=== PATIENT | female | born 1980 | race Caucasian/White ===

== ENCOUNTER 2017-11-15 19:20 | Emergency (ER) | payer SELFPAY ==
[~2017-11-15] VITALS: Ht 157.5 cm; Wt 54.4 kg
[~2017-11-15 19:20] MED LIST: ACHD5005 PO; ALPR.5T PO; AMLO2.5T PO; BSP10T; BSP10T PO; CHLO500T2 PO; CIPR-17 PO; CPR500T PO; CYCL10TA9 PO; HYDR1TAB8 OP; IBP800T PO; METF-380 PO; MTF500T; NAPR-243 PO; NITR-65 PO; NITR100C3 PO; ONDAN4ODT SL; OXYC-309 PO; PHEN100T26 PO; PHEN200T27 PO; PHEN37.555 PO; SPIR25TA3 PO; SPIR50TA27; SULF1TAB38 PO; TRAM50TA2 PO; TRM50T PO; [UNRECOGNIZED DRUG - CODE] PO; bentyl PO
--- OUTSIDE RECORDS SUMMARY | 2017-11-15 19:25 | XMS REPORT ---
Author Author GREGORIO GARCIA Organization [employer] Address Unknown Phone Unavailable Care Team Providers Care President Celebrity Acquistion Name Role Phone GREGORIO GARCIA CP Unavailable Allergies No Known Allergies Problems Problem Type Condition Code Onset Dates Condition Status Problem Panic disorder without agoraphobia F41.0 Active Problem Goiter, unspecified E04.9 Active Problem Enlargement of lymph node R59.1 Active Problem PTSD (post-traumatic stress disorder) F43.10 Active Problem Polycystic ovaries E28.2 Active Problem Otalgia, unspecified ear H92.09 Active Problem Nonspecific abdominal pain R10.9 Active Problem Counseling on substance use and abuse Z71.89 Active Problem Spontaneous ecchymoses R23.3 Active Problem Low back pain M54.5 Active Problem Hematuria, unspecified R31.9 Active Medications No Known Medications Results No Known Results Summary Purpose [employer] Submission
--- OUTSIDE RECORDS SUMMARY | 2017-11-15 19:25 | XMS REPORT ---
Author Author LOTTIE ARSHAD [employer] Address Unknown Phone Unavailable Care Team Providers Care Keysmith Name Role Phone LOTTIE ARSHAD Unavailable Allergies, Adverse Reactions, Alerts Substance Reaction Event Type Penicillin V Potassium hives Drug Allergy Problems Problem Type Condition Code Onset Dates Condition Status Problem Panic disorder without agoraphobia F41.0 Active Problem Goiter, unspecified E04.9 Active Problem Enlargement of lymph node R59.1 Active Problem Polycystic ovaries E28.2 Active Problem Otalgia, unspecified ear H92.09 Active Problem Nonspecific abdominal pain R10.9 Active Problem Counseling on substance use and abuse Z71.89 Active Problem Spontaneous ecchymoses R23.3 Active Problem Low back pain M54.5 Active Problem Hematuria, unspecified R31.9 Active Assessment Left lower quadrant abdominal tenderness R10.814 Active Assessment History of abnormal cervical Pap smear Z87.898 Active Assessment Papanicolaou smear Z12.4 Active Assessment Routine screening for STI (sexually transmitted infection) Z11.3 Active Assessment Unprotected sexual intercourse Z72.51 Active Assessment Vaginal odor N94.89 Active Assessment Vaginal discharge N89.8 Active Problem PTSD (post-traumatic stress disorder) F43.10 Active Medications Medication Code System Code Instructions Start Date End Date Status Dosage metformin [facility] [address]-06 1,000 mg 1 TAB orally once a day Jul 26, 2014 0.5 tablet by Oral route 1 time per day Spironolactone [facility] [address]-85 50 mg Jul 26, 2014 1 tablet by Oral route 1 time per day Flagyl [facility] [address]-40 500 MG Orally 2 times a day Jun 18, 2015 Jun 25, 2015 1 tablet Xanax [facility] [address]-19 1 MG September 12, 2014 1 tablet by Oral route 3 times per day am, 2pm and bedtime Procedures Procedure Coding System Code Date No Charge CPT-4 96940 Jun 18, 2015 TRICHOMONAS ASSAY W/OPTIC CPT-4 79233 Jun 18, 2015 SPECIMEN HANDLING CPT-4 09243 Jun 18, 2015 ACUTE HEPATITIS PANEL CPT-4 19299 Jun 18, 2015 CULTURE, BACTERIA, OTHER CPT-4 54039 Jun 18, 2015 Office Visit, Est Pt., Level 3 CPT-4 85002 Jun 18, 2015 VENIPUNCT, ROUTINE* CPT-4 92833 Jun 18, 2015 Vital Signs Date/Time: Jun 18, 2015 Temperature 98.0 F Weight 124.5 lbs Height 62 in BMI 22.77 Index Blood Pressure Diastolic 76 mmHg Blood Pressure Systolic 116 mmHg Results Name Result Date Reference Range Unit Abnormality Flag HEPATITIS PROFILE ----Hep B Core Ab, IgM Negative [id number] Negative ----Hep C Virus Ab <0.1 [id number] 0.0-0.9 s/co ratio ----Hep A Ab, IgM Negative [id number] Negative ----HBsAg Screen Negative [id number] Negative PDF Report ----PDF Report1 [facility] [id number] ROUTINE VENIPUNCTURE TRICHOMONAS (IN HOUSE) ----Exp date [id number] ----Control + [id number] ----Lot # [id number] ----TRICHOMONAS Negative [id number] Summary Purpose [employer]ClinicalWorks Submission
--- OUTSIDE RECORDS SUMMARY | 2017-11-15 19:25 | XMS REPORT ---
Author Author GREGORIO GARCIA Organization [employer] Address Unknown Phone Unavailable Care Team Providers Care Television Operator Name Role Phone GREGORIO GARCIA CP Unavailable Allergies No Known Allergies Problems Problem Type Condition ICD-9 Code Onset Dates Condition Status Problem Posttraumatic stress disorder 309.81 Active Problem Panic disorder without agoraphobia 300.01 Active Problem Enlargement of lymph nodes 785.6 Active Problem Candidiasis of vulva and vagina 112.1 Active Problem Pain in joint, pelvic region and thigh 719.45 Active Problem Streptococcal sore throat 034.0 Active Problem Goiter, unspecified 240.9 Active Problem Hematuria, unspecified 599.70 Active Problem Spontaneous ecchymoses 782.7 Active Problem Abdominal pain, other specified site 789.09 Active Problem Unspecified otalgia 388.70 Active Problem Lumbago 724.2 Active Problem Polycystic ovaries 256.4 Active Problem Screening examination for venereal disease V74.5 Active Problem Contact dermatitis and other eczema, due to unspecified cause 692.9 Active Problem Abdominal pain, generalized 789.07 Active Problem Abdominal pain, unspecified site 789.00 Active Problem Dysuria 788.1 Active Problem Migraine, unspecified without mention of intractable migraine without mention of status migrainosus 346.90 Active Problem Urinary tract infection, site not specified 599.0 Active Problem Abdominal or pelvic swelling, mass or lump, unspecified site 789.30 Active Problem Special screening for malignant neoplasms, vagina V76.47 Active Problem Leukorrhea, not specified as infective 623.5 Active Problem Abdominal pain, right lower quadrant 789.03 Active Problem Counseling on substance use and abuse V65.42 Active Problem Acute upper respiratory infections of unspecified site 465.9 Active Problem Pain in joint, lower leg 719.46 Active Problem Cough 786.2 Active Problem Pain in joint, shoulder region 719.41 Active Problem Other specified disease of hair and hair follicles 704.8 Active Medications Medication Code System Code Instructions Start Date End Date Status Dosage Xanax [facility] [address]-96 1 MG September 12, 2014 1 tablet by Oral route 3 times per day am, 2pm and bedtime Results No Known Results Summary Purpose [employer]ClinicalWorks Submission
--- OUTSIDE RECORDS SUMMARY | 2017-11-15 19:26 | XMS REPORT ---
Author Author AMRIT DE LA TORRE Organization [facility] Address [address] [place] [address] Care Team Providers Care Recruiting Internship Name Role Phone AMRIT DE LA TORRE Unavailable PROBLEMS Type Condition ICD9-CM Code NVM36-KK Code Onset Dates Condition Status SNOMED Code Problem Polycystic ovaries E28.2 Active 89653551 Problem PTSD (post-traumatic stress disorder) F43.10 Active 22031420 Problem Panic disorder without agoraphobia F41.0 Active 58229199 Problem Goiter, unspecified E04.9 Active 3943848 Problem Enlargement of lymph node R59.1 Active 06428001 Problem Nonspecific abdominal pain R10.9 Active 196929399 Problem Counseling on substance use and abuse Z71.89 Active 644705632 Problem Anxiety F41.9 Active 99869447 Problem Hirsutism L68.0 Active 415143610 Problem Hematuria, unspecified R31.9 Active 64389726 Problem Otalgia, unspecified ear H92.09 Active 91301083 Problem Low back pain M54.5 Active 208749543 Problem Spontaneous ecchymoses R23.3 Active 188022762 ALLERGIES No Information ENCOUNTERS Encounter Location Date Diagnosis [facility] [id number] [address] October, [facility] [address] [address] Apr, [facility] [id number] [address] Apr, [facility] [id number] [place] [address] Mar, Screen for STD (sexually transmitted disease) Z11.3 [facility] [id number] [place] [address] Mar, [facility] [id number] [address] Jan, Lumbar strain, initial encounter S39.012A [facility] [id number] [address] Nov, Acute cystitis with hematuria N30.01 and Dysuria R30.0 [place] [address] [address] October, [place] [address] [address] October, Anxiety F41.9 and Hirsutism L68.0 [place] [address] [address] Jun, [facility] [address] [address] May, Vaginal odor N94.89 ; Routine screening for STI (sexually transmitted infection) Z11.3 ; Papanicolaou smear Z12.4 ; Vaginal discharge N89.8 ; Unprotected sexual intercourse Z72.51 ; History of abnormal cervical Pap smear Z87.898 and Left lower quadrant abdominal tenderness R10.814 [facility] [id number] [address] Feb, [facility] [address] [address] Jan, Breast lump on right side at 11 o'clock position 611.72 ; Family hx-breast malignancy V16.3 ; Enlarged thyroid 240.9 ; Abnormal facial hair 704.1 and Nicotine dependence 305.1 [place] [address] [address] Jan, Finger pain, left 729.5 [place] [address] [address] Jan, [place] [address] [facility] [id number] [place] [address] Nov, Hematuria, unspecified 599.70 and Back pain 724.5 [facility] [address] [facility] [id number] [place] [address] October, [facility] [address] [address] October, Hematuria, unspecified 599.70 [facility] [address] [facility] [id number] [place] [address] Sep, [facility] [address] [facility] [id number] [place] [address], [place] [address] Sep, [facility] [address] [place] [address] Aug, [facility] [id number] [place] [address], [place] [address] Aug, [facility] [id number] [place] [address] Jul, [facility] [address] [place] [address] Jul, [facility] [address] [address] Apr, [facility] [address] [address] Apr, [facility] [address] [address] Apr, [facility] [id number] [place] [address] Apr, [facility] [address] [address] Apr, [facility] [id number] [address] Apr, [facility] [place] [facility] [address] [id number] [place] [address] Mar, [facility] [place] [facility] [address] [id number] [place] [address]- 09[address] Mar, [facility] [place] [facility] [address] [id number] [place] [address] Mar, [facility] [place] [facility] [address] [id number] [place] [address]- [address] Mar, [facility] [place] [facility] [address] [id number] [place] [address]- [address] 30 Feb, 2013 [facility] [place] [facility] [address] [id number] [place] [address]- 49[address] 30 Feb, 2013 [facility] [place] [facility] [address] [id number] [place] [address]- 4[address] Feb, 2013 [facility] [place] [facility] [address] [id number] [place] [address]- 0531 23 Feb, 2013 [facility] [place] [facility] [address] [id number] [place] [address]- 89[address] Feb, 2013 [facility] [place] [facility] [address] [id number] [place] [address]- 6978 Feb, 2013 [facility] [place] [facility] [address] [id number] [place] [address]- 3769 15 Feb, 2013 [facility] [place] [facility] [address] [id number] [place] [address]- 2542 15 Feb, 2013 [facility] [place] [facility] [address] [id number] [place] [address]- [address] Feb, 2013 [facility] [place] [facility] [address] [id number] [place] [address]- 25[address] Feb, 2013 [facility] [place] [facility] [address] [id number] [place] [address]- 30[address] 04 Feb, 2013 [facility] [place] [facility] [address] [id number] [place] [address]- 72[address] Feb, [facility] [place] [facility] [address] [id number] [place] [address]- 56[address] Feb, [facility] [place] [facility] [address] [id number] [place] [address]- 9270 Feb, [facility] [place] [facility] [address] [id number] [place] [address]- 0098 Jan, [facility] [place] [facility] [address] [id number] [place] [address]- 9641 Jan, [facility] [place] [facility] [address] [id number] [place] [address]- [address] Jan, [facility] [place] [facility] [address] [id number] [place] [address]- 9597 Jan, [facility] [place] [facility] [address] [id number] [place] [address]- 3399 Jan, [facility] [place] [facility] [address] [id number] [place] [address]- 8603 October, [facility] [place] [facility] [address] [id number] [place] [address]- 8478 October, [facility] [place] [facility] [address] [id number] [place] [address]- 7927 Sep, [facility] [place] [facility] [address] [id number] [place] [address]- 1845 Sep, [facility] [place] [facility] [address] [id number] [place] [address]- 4072 Sep, [facility] [place] [facility] [address] [id number] [place] [address]- 7098 Sep, [facility] [place] [facility] [address] [id number] [place] [address]- 2640 Sep, [facility] [place] [facility] [address] [id number] [place] [address]- 3421 Sep, [facility] [place] [facility] [address] [id number] [place] [address]- 8228 Aug, [facility] [place] [facility] [address] [id number] [place] [address]- 9099 Aug, [facility] [place] [facility] [address] [id number] [place] [address]- 24[address] Jul, [facility] [place] [facility] [address] [id number] [place] [address]- 2886 Jul, [facility] [place] [facility] [address] [id number] [place] [address]- 7759 Jul, [facility] [place] [facility] [address] [id number] [place] [address]- 3246 Jul, [facility] [place] [facility] [address] [id number] [place] [address]- 5995 Jul, [facility] [place] [facility] [address] [id number] [place] [address]- 2256 Jul, [facility] [place] [facility] [address] [id number] [place] [address]- 2776 May, [facility] [place] [facility] [address] [id number] [place] [address]- 0914 May, [facility] [place] [facility] [address] [id number] [place] [address]- 9357 May, [facility] [place] [facility] [address] [id number] [place] [address]- 2540 May, [facility] [place] [facility] [address] [id number] [place] [address]- 254 May, [facility] [place] [facility] [address] [id number] [place] [address]- 2546 May, [facility] [place] [facility] [address] [id number] [place] [address]- 2540 Apr, [facility] [place] [facility] [address] [id number] [place] [address]- 0173 Apr, [facility] [place] [facility] [address] [id number] [place] [address]- 7865 Apr, [facility] [place] [facility] [address] [id number] [place] [address]- 1731 Apr, [facility] [place] [facility] [address] [id number] [place] [address]- 8808 Mar, [facility] [place] [facility] [address] [id number] [place] [address]- 3018 Mar, [facility] [place] [facility] [address] [id number] [place] [address]- 5894 Mar, [facility] [place] [facility] [address] [id number] [address]- 4[address] Mar, [facility] [place] [facility] [address] [id number] [place] [address]- 4441 Mar, [facility] [place] [facility] [address] [id number] [place] [address]- 69[address] Mar, [facility] [place] [facility] [address] [id number] [place] [address]- 9169 Mar, [facility] [place] [facility] [address] [id number] [address]- 8660 Mar, [facility] [place] [facility] [address] [id number] [place] [address]- 8551 Mar, [facility] [place] [facility] [address] [id number] [place] [address]- 6927 Mar, [facility] [place] [facility] [address] [id number] [place] [address]- 7519 Feb, [facility] [place] [facility] [address] [id number] [address]- 7[address] Jan, [facility] [place] [facility] [address] [id number] [place] [address]- 4992 Dec, [facility] [place] [facility] [address] [id number] [place] [address]- 7559 Dec, [facility] [address] [id number] [place] [address]- 8714 Dec, [facility] [address] [id number] [place] [address]- 9856 Dec, [facility] [address] [id number] [place] [address]- 5094 Dec, [facility] [address] [id number] [place] [address]- 5501 Dec, [facility] [address] [id number] [place] [address]- 5492 Dec, [facility] [address] [id number] [place] [address]- 8631 Dec, [facility] [address] [id number] [place] [address]- 9748 Dec, [facility] [address] [id number] [place] [address]- 5548 Nov, [facility] [address] [id number] [place] [address]- 2378 Nov, [facility] [address] [id number] [place] [address]- 0583 Nov, [facility] [place] [facility] [address] [id number] [place] [address]- 4297 October, [facility] [address] [id number] [place] [address]- 2712 Jul, [facility] [place] [facility] [address] [id number] [place] [address]- 0104 Jul, [facility] [place] [facility] [address] [id number] [place] [address]- 2546 Jul, [facility] [address] [id number] [place] [address]- 6948 Jun, [facility] [place] [facility] [address] [id number] [place] [address]- 5411 Jun, [facility] [place] [facility] [address] [id number] [place] [address]- 1506 Jun, [facility] [place] [facility] [address] [id number] [place] [address]- 7687 Jun, [facility] [place] [facility] [address] [id number] [place] [address]- 4459 Jun, [facility] [place] [facility] [address] [id number] [place] [address]- 9397 Jun, [facility] [place] [facility] [address] [id number] [place] [address]- 6889 Jun, [facility] [place] [facility] [address] [id number] [place] [address]- 2763 Jun, [facility] [place] [facility] [address] [id number] [place] [address]- 8448 Apr, [facility] [place] [facility] [address] [id number] [place] [address]- 4005 Apr, [facility] [place] [facility] [address] [id number] [place] [address]- 2506 Mar, [facility] [place] [facility] [address] [id number] [place] [address]- 8138 Mar, [facility] [place] [facility] [address] [id number] [place] [address]- 7921 Mar, [facility] [place] [facility] [address] [id number] [place] [address]- 3174 Feb, [facility] [place] [facility] [address] [id number] [place] [address]- 1531 05 Feb, 2012 [facility] [place] [facility] [address] [id number] [place] [address]- 8820 Feb, [facility] [place] [facility] [address] [id number] [place] [address]- 5782 Jan, [facility] [place] [facility] [address] [id number] [place] [address]- 5273 Jan, [facility] [place] [facility] [address] [id number] [place] [address]- 5286 Jan, [facility] [place] [facility] [address] [id number] [place] [address]- 8310 Nov, [facility] [place] [facility] [address] [id number] [place] [address]- 0448 Nov, [facility] [place] [facility] [address] [id number] [place] [address]- 5442 Nov, [facility] [place] [facility] [address] [id number] [place] [address]- 1692 Nov, [facility] [place] [facility] [address] [id number] [place] [address]- 8490 October, [facility] [place] [facility] [address] [id number] [place] [address]- 4677 October, [facility] [place] [facility] [address] [id number] [place] [address]- 7327 Sep, [facility] [place] [facility] [address] [id number] [place] [address]- 0927 Sep, [facility] [place] [facility] [address] [id number] [place] [address]- 7504 Jul, [facility] [place] [facility] [address] [id number] [place] [address]- 1707 Jul, [facility] [place] [facility] [address] [id number] [place] [address]- 3929 Jun, [facility] [place] [facility] [address] [id number] [place] [address]- 6872 Jun, [facility] [place] [facility] [address] [id number] [place] [address]- 6441 May, [facility] [address] [facility] [id number] [place] [address]- 0667 May, [facility] [address] [address]- 3370 May, [facility] [address] [facility] [id number] [place] [address] Apr, [facility] [id number] [address] 13 Feb, 2011 [facility] [address] [facility] [id number] [address] Sep, [facility] [id number] [address] Apr, [facility] [id number] [address] Apr, [facility] [id number] [address] Nov, [facility] [id number] [address] October, [facility] [id number] [address] 19 Jul, 2008 [facility] [id number] [address] 10 May, 2008 [facility] [id number] [address] 10 Mar, 2008 IMMUNIZATIONS No Known Immunizations SOCIAL HISTORY Never Assessed REASON FOR VISIT STD treatment PLAN OF CARE VITAL SIGNS MEDICATIONS Unknown Medications RESULTS No Results PROCEDURES No Known procedures INSTRUCTIONS MEDICATIONS ADMINISTERED No Known Medications MEDICAL (GENERAL) HISTORY Type Description Date Medical History anxiety Surgical History tubaligation 2003 Surgical History bladder lifted X 2 Surgical History rectal repair 2004 Surgical History hysterectomy Hospitalization History Hospitalized only for surgeries and childbirth
--- OUTSIDE RECORDS SUMMARY | 2017-11-15 19:26 | XMS REPORT ---
Author Author JR IVY [facility], [place] eClinicalWorks Address Unknown Phone Unavailable Care Team Providers Care Database Administration Associate Name Role Phone JR IVY CP Unavailable Allergies, Adverse Reactions, Alerts Substance Reaction Event Type Penicillin V Potassium hives Drug Allergy Problems Problem Type Condition ICD-9 Code Onset Dates Condition Status Assessment Enlarged thyroid 240.9 Active Assessment Abnormal facial hair 704.1 Active Assessment Breast lump on right side at 11 o'clock position 611.72 Active Assessment Family hx-breast malignancy V16.3 Active Problem Posttraumatic stress disorder 309.81 Active Problem [...] Leukorrhea, not specified as infective 623.5 Active Assessment Nicotine dependence 305.1 Active Problem Abdominal pain, right lower quadrant [...] Start Date End Date Status Dosage metformin [facility] [address]-59 1,000 mg 1 TAB orally once a day Jul 26, 2014 0.5 tablet by Oral route 1 time per day Xanax [facility] [address]-02 1 mg September 12, 2014 1 tablet by Oral route 3 times per day am, 2pm and bedtime Spironolactone [facility] [address]-08 50 mg Jul 26, 2014 1 tablet by Oral route 1 time per day Procedures Procedure Coding System Code Date Preventive Care Est Pt. Age 18-39 CPT-4 11277 Feb 18, 2015 Vital Signs Date/Time: Feb 18, 2015 Temperature 97.0 F Weight 124.7 lbs Height 62 in BMI 22.81 Index Blood Pressure Diastolic 68 mmHg Blood Pressure Systolic 110 mmHg Cardiac Monitoring Heart Rate 78 bpm Results No Known Results Summary Purpose eClinicalWorks Submission
[2017-11-15] MEDS ORDERED: NS IV 1000 ML 1,000 ML IV SCH ×2 (19:33→20:57)
[2017-11-15] MEDS ORDERED: ONDANSETRON 4 MG/2 ML (SDV) Z0FRAN ONE (19:33)
[2017-11-15] MEDS ORDERED: KETOROLAC 30 MG/ML VIAL IVP STA (19:38)
[2017-11-15 19:41] LABS: BASOPHILS % (AUTO) 0 % (0-10); EOSINOPHILS # (AUTO) 0.1 10^3/uL (0.0-0.3); EOSINOPHILS % (AUTO) 1 % (0-10); HEMATOCRIT 43 % (35-52); HEMOGLOBIN 14.5 G/DL (11.5-16.0); LYMPHOCYTES % (AUTO) 27 % (12-44); MEAN CORPUSCULAR HEMOGLOBIN 31 PG (25-34); MEAN CORPUSCULAR HGB CONC 34 G/DL (32-36); MEAN CORPUSCULAR VOLUME 91 FL (80-99); MEAN PLATELET VOLUME 11.3 FL (7.4-10.4); MONOCYTES # (AUTO) 0.6 X 10^3 (0.0-1.0); MONOCYTES % (AUTO) 7 % (0-12); NEUTROPHILS # (AUTO) 4.9 X 10^3 (1.8-7.8); NEUTROPHILS % (AUTO) 65 % (42-75); PLATELET COUNT 238 10^3/uL (130-400); RED BLOOD COUNT 4.68 10^6/uL (4.35-5.85); RED CELL DISTRIBUTION WIDTH 13.6 % (10.0-14.5); WHITE BLOOD COUNT 7.5 10^3/uL (4.3-11.0)
[2017-11-15] MEDS ORDERED: ONDANSETRON 4 MG/2 ML (SDV) Z0FRAN IVP ONE (19:45)
[2017-11-15 20:01] LABS: PROTHROMBIN TIME PATIENT 13.1 SEC (12.2-14.7)
[2017-11-15 20:07] LABS: ALANINE AMINOTRANSFERASE 18 U/L (0-55); ALBUMIN 4.4 GM/DL (3.2-4.5); ALKALINE PHOSPHATASE 65 U/L (40-136); BILIRUBIN,TOTAL 0.7 MG/DL (0.1-1.0); BUN/CREATININE RATIO 22; CALCIUM 10.4 MG/DL (8.5-10.1); CARBON DIOXIDE 22 MMOL/L (21-32); CHLORIDE 105 MMOL/L (98-107); CREATININE SERUM 0.92 MG/DL (0.60-1.30); GFR ESTIMATED > 60; GLUCOSE 89 MG/DL (70-105); MAGNESIUM 2.2 MG/DL (1.8-2.4); POTASSIUM 4.1 MMOL/L (3.6-5.0); SODIUM 141 MMOL/L (135-145); TOTAL PROTEIN 6.9 GM/DL (6.4-8.2)
[2017-11-15 20:08] LABS: ACETAMINOPHEN < 10 UG/ML (10-30)
--- NOTE | 2017-11-15 20:08 | Diagnostic Imaging Report ---
PROCEDURE: CT head without contrast. TECHNIQUE: Multiple contiguous axial images were obtained through the brain without the use of intravenous contrast. INDICATION: Severe head pain The ventricles are normal in size, shape and position. There is no acute parenchymal hemorrhage, edema or mass. There is no extra-axial mass or hemorrhage. IMPRESSION: Normal CT of the head. There is no significant change from 05/24/2013. Dictated by: Dictated on workstation # [id number]
--- NOTE | 2017-11-15 20:13 | ED Headache ---
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 DENIES TAKING ANY MEDICATIONS FOR C/ O. DAUGHTER REPORTS PT TAKES MEDS FOR SEIZURES WHICH PT DENIES Nursing Sepsis Screen: No Definite Risk History of Present Illness Date Seen by Provider: November 15, 2017 Time Seen by Provider: 19:25 Initial Comments 36-year-old female presents for headache, nausea and confusion. The patient is diabetic but is no longer taking medication, maintained by diet and exercise. She has a history of seizure disorders but denies taking medications for it. Her daughter brought her to the emergency department and reports that she called earlier today and was confused and lethargic. When she got to her home she was lying on the floor and had difficulty standing. She reports that she vomited 3-4 times earlier today and has not. She is complaining of a frontal headache with pain 9/10. Her daughter reports a history of illicit drug use in her past, the patient denies using any drugs recently. She does report having one alcoholic beverage last evening no alcohol today. Denies taking any medications today. Timing/Duration: 4-6 hours Severity/Quality: moderate Location: frontal Prior Headaches/Recent Trauma: frequent headaches Associated Symptoms: confusion, fatigue; No facial pain, No fever/chills, No loss of consciousness; nausea/vomiting; No nasal congestion, No nasal drainage, No numbness in legs/feet, No rash, No seizures, No sinus infection, No stiff neck, No vision changes; weakness Allergies and Home Medications Allergies Coded Allergies: Penicillins (Unverified Allergy, Mild, HIVES, 05/20/07) propoxyphene (Unverified Allergy, Mild, 11/25/08) Home Medications Alprazolam 0.5 Mg Tablet, 2 TAB PO TID PRN, (Reported) Chlorzoxazone 500 Mg Tablet, 500 MG PO BID, (Reported) Ciprofloxacin 500 Mg Tbmp.24hr, 1 TAB PO BID Prescribed by: NICOLE KARIMI on 05/12/14 4479 Oxycodone Hcl/Acetaminophen 1 Each Tablet, 1 EACH PO Q6H PRN for PAIN, (Reported ) Sulfamethoxazole/Trimethoprim 1 Each Tablet, 1 EACH PO BID Prescribed by: KIP PEACOCK on 11/15/17 2249 Patient Home Medication List Home Medication List Reviewed: Yes Review of Systems Constitutional: no symptoms reported, see HPI Gastrointestinal: see HPI, nausea, vomiting Psychiatric/Neurological: See HPI, Headache All Other Systems Reviewed Negative Unless Noted: Yes Past Rerivim-Ikdaye-Kplmda Hx Past Med/Social Hx: Reviewed Nursing Past Med/Soc Hx Patient Social History Alcohol Use: Denies Use Recreational Drug Use: No Smoking Status: Current Everyday Smoker Type Used: Cigarettes Recent Foreign Travel: No Contact w/Someone Who Travel: No Recent Infectious Disease Expo: No Physical Abuse: No Sexual Abuse: No Mistreated: No Fear: No Immunizations Up To Date Tetanus Booster (TDap): Less than 5yrs PED Vaccines UTD: Yes Seasonal Allergies Seasonal Allergies: No Past Medical History Respiratory: No Cardiac: No 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, 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 Sexually Transmitted Disease: No HIV/AIDS: No Gastrointestinal: No Rheumatoid Arthritis, Fractures Endocrine: No Diabetes, Non-Insulin dep Cancer: No Psychosocial: Yes Anxiety, Depression Nursing Suicide Risk Score: 0 Integumentary: No Blood Disorders: No Adverse Reaction/Blood Tranf: No Family Medical History No Pertinent Family Hx Physical Exam Vital Signs Vital Signs - First Documented 11/15/17 19:23 Temp 92.8 Pulse 88 Resp 20 B/P (MAP) 110/71 (84) Pulse Ox 100 O2 Delivery Room Air Capillary Refill : Less Than 3 Seconds General Appearance: WD/WN, mild distress HEENT: PERRL/EOMI, normal ENT inspection, TMs normal, pharynx normal Neck: non-tender, full range of motion, supple, normal inspection Cardiovascular: normal peripheral pulses, regular rate, rhythm Respiratory: chest non-tender, lungs clear, normal breath sounds Gastrointestinal: normal bowel sounds, non tender, soft; No guarding, No rebound, No tenderness Psychiatric: lethargic Crainal Nerves: normal hearing, normal speech, PERRL Motor/Sensory: no motor deficit, no sensory deficit Skin: normal color, warm/dry Progress/Results/Core Measures Results/Orders Lab Results Laboratory Tests Test 11/15/17 19:30 11/15/17 19:42 11/15/17 20:36 Range/Units White Blood Count 7.5 4.3-11.0 10^3/uL Red Blood Count 4.68 4.35-5.85 10^6/uL Hemoglobin 14.5 11.5-16.0 G/DL Hematocrit 43 35-52 % Mean Corpuscular Volume 91 80-99 FL Mean Corpuscular Hemoglobin 31 25-34 PG Mean Corpuscular Hemoglobin Concent 34 32-36 G/DL Red Cell Distribution Width 13.6 10.0-14.5 % Platelet Count 238 130-400 10^3/uL Mean Platelet Volume 11.3 H 7.4-10.4 FL Neutrophils (%) (Auto) 65 42-75 % Lymphocytes (%) (Auto) 27 12-44 % Monocytes (%) (Auto) 7 0-12 % Eosinophils (%) (Auto) 1 0-10 % Basophils (%) (Auto) 0 0-10 % Neutrophils # (Auto) 4.9 1.8-7.8 X 10^3 Lymphocytes # (Auto) 2.0 1.0-4.0 X 10^3 Monocytes # (Auto) 0.6 0.0-1.0 X 10^3 Eosinophils # (Auto) 0.1 0.0-0.3 10^3/uL Basophils # (Auto) 0.0 0.0-0.1 10^3/uL Prothrombin Time 13.1 12.2-14.7 SEC INR Comment 1.0 0.8-1.4 Activated Partial Thromboplast Time 26 24-35 SEC Sodium Level 141 135-145 MMOL/L Potassium Level 4.1 3.6-5.0 MMOL/L Chloride Level 105 98-107 MMOL/L Carbon Dioxide Level 22 21-32 MMOL/L Anion Gap 14 5-14 MMOL/L Blood Urea Nitrogen 20 H 7-18 MG/DL Creatinine 0.92 0.60-1.30 MG/DL Estimat Glomerular Filtration Rate > 60 BUN/Creatinine Ratio 22 Glucose Level 89 70-105 MG/DL Calcium Level 10.4 H 8.5-10.1 MG/DL Magnesium Level 2.2 1.8-2.4 MG/DL Total Bilirubin 0.7 0.1-1.0 MG/DL Aspartate Amino Transf (AST/SGOT) 22 5-34 U/L Alanine Aminotransferase (ALT/SGPT) 18 0-55 U/L Alkaline Phosphatase 65 40-136 U/L Troponin I < 0.30 <0.30 NG/ML Total Protein 6.9 6.4-8.2 GM/DL Albumin 4.4 3.2-4.5 GM/DL Acetaminophen Level < 10 L 10-30 UG/ML Serum Alcohol < 10 <10 MG/DL Glucometer 96 70-110 MG/DL Urine Color YELLOW Urine Clarity VERY CLOUDY H Urine pH 6 5-9 Urine Specific [place] 1.025 H 1.016-1.022 Urine Protein 1+ H NEGATIVE Urine Glucose (UA) NEGATIVE NEGATIVE Urine Ketones 2+ H NEGATIVE Urine Nitrite POSITIVE H NEGATIVE Urine Bilirubin NEGATIVE NEGATIVE Urine Urobilinogen NORMAL NORMAL MG/DL Urine Leukocyte Esterase 2+ H NEGATIVE Urine RBC (Auto) 2+ H NEGATIVE Urine RBC 0-2 /HPF Urine WBC 25-50 H /HPF Urine Squamous Epithelial Cells 25-50 H /HPF Urine Crystals NONE /LPF Urine Bacteria LARGE H /HPF Urine Casts NONE /LPF Urine Mucus SMALL H /LPF Urine Culture Indicated YES Urine Opiates Screen NEGATIVE NEGATIVE Urine Oxycodone Screen NEGATIVE NEGATIVE Urine Methadone Screen NEGATIVE NEGATIVE Urine Propoxyphene Screen NEGATIVE NEGATIVE Urine Barbiturates Screen NEGATIVE NEGATIVE Ur Tricyclic Antidepressants Screen NEGATIVE NEGATIVE Urine Phencyclidine Screen NEGATIVE NEGATIVE Urine Amphetamines Screen NEGATIVE NEGATIVE Urine Methamphetamines Screen NEGATIVE NEGATIVE Urine Benzodiazepines Screen NEGATIVE NEGATIVE Urine Cocaine Screen NEGATIVE NEGATIVE Urine Cannabinoids Screen NEGATIVE NEGATIVE My Orders Orders - 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,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 Acetaminophen (11/15/17 19:33) Alcohol (11/15/17 19:33) Cbc With Automated Diff (11/15/17 19:33) Comprehensive Metabolic Panel (11/15/17 19:33) Magnesium (11/15/17 19:33) Protime With Inr (11/15/17 19:33) Partial Thromboplastin Time (11/15/17 19:33) Ua Culture If Indicated (11/15/17 19:33) Accucheck Stat ONCE (11/15/17 19:33) Saline Lock/Iv-Start (11/15/17 19:33) Ns Iv 1000 Ml (Sodium Chloride 0.9%) (11/15/17 19:33) Ekg Tracing (11/15/17 19:34) Ct Head Wo (11/15/17 19:34) Drug Screen Stat (Urine) (11/15/17 19:35) Ondansetron Injection (Zofran Injectio (11/15/17 19:45) Ketorolac Injection (Toradol Injection) (11/15/17 19:38) Ondansetron Injection (Zofran Injectio (11/15/17 19:33) Troponin I (11/15/17 20:13) Fentanyl Injection (Sublimaze Injection (11/15/17 21:00) Ns Iv 1000 Ml (Sodium Chloride 0.9%) (11/15/17 20:57) Ekg Tracing (11/15/17 21:04) Urine Culture (11/15/17 20:36) Levofloxacin 500 Mg/100 Ml Iv (Levaquin (11/15/17 22:15) Medications Given in ED Current Medications Medications Dose Ordered Sig/Elisabeth Route Start Time Stop Time Status Last Admin Dose Admin Fentanyl Citrate 50 mcg ONCE ONCE IVP 11/15/17 21:00 11/15/17 21:01 DC 11/15/17 21:15 50 MCG Levofloxacin/ Dextrose 100 ml @ 100 mls/hr ONCE ONCE IV 11/15/17 22:15 11/15/17 23:14 DC 11/15/17 22:24 100 MLS/HR Ondansetron HCl 8 mg ONCE ONCE IVP 11/15/17 19:45 11/15/17 19:46 DC 11/15/17 19:44 8 MG Vital Signs/I&O 11/15/17 19:23 Temp 92.8 Pulse 88 Resp 20 B/P (MAP) 110/71 (84) Pulse Ox 100 O2 Delivery Room Air Blood Pressure Mean: 84 FSBG Bedside Testing Finger Stick Blood Glucose: 96 Progress Progress Note : Time: 19:25 Progress Note Initial evaluation completed Accu-Chek 96, patient denies taking any illicit drugs or alcohol today. No vomiting since admission but complaining of nausea. Will give Zofran 8 mg IV. Normal saline [address] Labs and [address] head ordered. 1944 Toradol 30 mg IV for headache. 2100 patient continues to complain of frontal headache, no relief since giving the Toradol, we'll give fentanyl 50 g IV and NS 1 L IV. Temperature 94.8. 2130 B/P 80/50s. Patient easily arousable and answers questions appropriately. All labs and CT study within normal limits, with exception of UTI. 2199 Levaquin 500 mg IV for urinary tract infection. Patient able to sit on the side of bed and answer all questions appropriately. She does report she is been a significant amount of time outside in the heat today, unsure if she drank enough fluids. 2230 Temp 96.8, bp 100/60s. Patient sitting up in bed, drinking coffee and eating crackers. Denies any complaints at this time. 2300 discharge instructions and return precautions reviewed in detail with the patient and her daughter. All questions answered. Initial ECG Impression Date: November 15, 2017 Initial ECG Impression Time: 19:58 Initial ECG Rate: 53 Initial ECG Rhythm: Normal Sinus Initial ECG Intervals: Normal Initial ECG Intervals SC 156, QRS T 80, QTC 476, QTC 447. Newcomb P 82, QRS 75, T 76. Initial ECG Impression: Normal Initial ECG Comparisson: Unchanged Comment Reviewed with Dr. Lee, recommended repeat EKG. EKG : EKG Time: 21:09 Rate: 53 Rhythm: Normal Sinus Intervals: Normal Intervals SC 160, QRS T 80, QTC 452, QTC 425. Newcomb P 83, QRS 68, T 70. ECG Impression: Normal Comment Reviewed with Dr. Lee, agreed with interpretation. Diagnostic Imaging Diagonstic Imaging: CT Plain Films/CT/US/NM/MRI: head Comments NAME: ADEN [facility] REC#: [id number] PT STATUS: REG ER : 1980 PHYSICIAN: KIP PEACOCK ADMIT DATE: 11/15/17/ER Signed Date of Exam: 11/15/17 CT HEAD WO PROCEDURE: CT head without contrast. TECHNIQUE: Multiple contiguous axial images were obtained through the brain without the use of intravenous contrast. INDICATION: Severe head pain The ventricles are normal in size, shape and position. There is no acute parenchymal hemorrhage, edema or mass. There is no extra-axial mass or hemorrhage. IMPRESSION: Normal CT of the head. There is no significant change from 05/24/2013. Dictated by: Dictated on workstation # [id number] Dict: 11/15/172005 Trans: 11/15/172010 Interpreted by: CLEMENTE CARRASCO MD Electronically signed by: CLEMENTE CARRASCO MD 11/15/172010 Reviewed: Reviewed by Me Departure Impression Primary Impression: Migraine Qualified Codes: G43.019 - Migraine without aura, intractable, without status migrainosus Additional Impressions: Hypotension Qualified Codes: I95.9 - Hypotension, unspecified UTI (urinary tract infection) Qualified Codes: N30.01 - Acute cystitis with hematuria Disposition: HOME, SELF-CARE Condition: Improved Departure-Patient Inst. Decision time for Depature: 23:00 Referrals: JACK HOLMAN DO (PCP) Primary Care Physician Patient Instructions: Migraine Headache (DC), Urinary Tract Infection, Adult ( DC) Add. Discharge Instructions: Take medication as prescribed. Follow up with Dr. Holman in 2-3 days or sooner if symptoms are not improving. Increase water intake, one bottle every 2 hours while awake. Make sure to take frequent breaks and eat small meals while working in the heat. Return to emergency department if symptoms are not improving or worsen. All discharge instructions reviewed with patient and/or family. Voiced understanding. Scripts Sulfamethoxazole/Trimethoprim (Bactrim Ds Tablet) 1 Each Tablet 1 EACH PO BID, #14 TAB 0 Refills Prov: KIP PEACOCK 11/15/17 Copy Copies To 1: JACK HOLMAN AMY ARNP November 15, 2017 20:13
[2017-11-15 20:53] LABS: BILIRUBIN,URINE NEGATIVE (NEGATIVE); CLARITY,URINE VERY CLOUDY; COLOR,URINE YELLOW; GLUCOSE, URINE (UA) NEGATIVE (NEGATIVE); KETONES,URINE 2+ (NEGATIVE); LEUKOCYTE ESTERASE ,URINE 2+ (NEGATIVE); NITRITE,URINE POSITIVE (NEGATIVE); PH,URINE 6 (5-9); PROTEIN,URINE 1+ (NEGATIVE); UROBILINOGEN,URINE NORMAL (NORMAL)
[2017-11-15] MEDS ORDERED: fentaNYL INJECTION 100 MCG/2 ML AMP IVP ONE (21:00)
[2017-11-15 21:01] LABS: AMPHETAMINE SCREEN, URINE NEGATIVE (NEGATIVE); BARBITURATE SCREEN URINE NEGATIVE (NEGATIVE); BENZODIAZEPINES SCREEN URINE NEGATIVE (NEGATIVE); CANNABINOID SCREEN, URINE NEGATIVE (NEGATIVE); COCAINE SCREEN URINE NEGATIVE (NEGATIVE); METHADONE STAT NEGATIVE (NEGATIVE); METHAMPHETAMINE SCREEN URINE S NEGATIVE (NEGATIVE); OPIATE SCREEN URINE NEGATIVE (NEGATIVE); OXYCODONE STAT NEGATIVE (NEGATIVE); PROPOXYPHENE STAT NEGATIVE (NEGATIVE); TRICYCLIC ANTIDEPRESSANTS SCRE NEGATIVE (NEGATIVE)
[2017-11-15 21:12] LABS: RBC,URINE 0-2 /HPF; WBC,URINE 25-50 /HPF
[2017-11-15 21:13] LABS: BACTERIA,URINE LARGE /HPF; SQUAMOUS EPITHELIAL CELL,UR 25-50 /HPF
[2017-11-15] MEDS ORDERED: LEVOFLOXACIN 500 MG/100 ML IV 100 ML IV ONE (22:15)
[2017-11-15] MEDS ORDERED: SULF1TAB35 PO (22:49)
[2017-11-15 23:57] VITALS: BP 101/68
== END 2017-11-15 23:57 | disposition home or self-care (01) ==
LOC: EDUNIT# 19:20 → ER 19:21
DX: G43.909 Migraine, unspecified, not intractable, without status migrainosus (principal); I95.9 Hypotension, unspecified; N39.0 Urinary tract infection, site not specified; G40.909 Epilepsy, unspecified, not intractable, without status epilepticus; M06.9 Rheumatoid arthritis, unspecified; E11.9 Type 2 diabetes mellitus without complications; F41.9 Anxiety disorder, unspecified; F32.9 Major depressive disorder, single episode, unspecified; F17.210 Nicotine dependence, cigarettes, uncomplicated; Z98.51 Tubal ligation status; Z90.710 Acquired absence of both cervix and uterus; Z91.14 Patient's other noncompliance with medication regimen; Z88.0 Allergy status to penicillin; Z88.8 Allergy status to other drugs, medicaments and biological substances
CPT/HCPCS: 36415; 70450; 80053; 80306; 80320; 80329; 81000; 82962; 83735; 84484; 85025; 85610; 85730; 87077; 87088; 87186; 93005; 96361; 96365; 96375

== ENCOUNTER 2022-07-21 15:39 | Emergency (ER) | payer SELFPAY ==
[~2022-07-21] VITALS: Ht 155 cm; Wt 59.0 kg
[2022-07-21] MEDS ORDERED: ORPHENADRINE 60 MG/2 ML (NORFLEX) AMP (ED ONLY) IM STA (16:12)
[2022-07-21] MEDS ORDERED: fentaNYL INJ 100 MCG/2 ML AMP IM STA (16:12)
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
--- NOTE | 2022-07-21 17:10 | Diagnostic Imaging Report ---
INDICATION: Fall and back pain. TIME OF EXAM: 5:03 p.m. FINDINGS: Frontal and lateral views of the lumbar spine were obtained. Curvature and alignment is normal. Vertebral body heights and disc spaces are fairly well maintained. No fracture or subluxation is identified. IMPRESSION: No acute bony abnormality is detected. Dictated by: Dictated on workstation # [id number]
--- NOTE | 2022-07-21 17:12 | Diagnostic Imaging Report ---
INDICATION: Back pain and fall. TIME OF EXAM: 05:02 p.m. FINDINGS: Two views of the thoracic spine show normal thoracic kyphotic curvature. Vertebral body heights are maintained. No acute compression fracture is seen. The pedicles and paraspinous line are intact. IMPRESSION: No acute bony abnormality is detected. Dictated by: Dictated on workstation # [id number]
--- NOTE | 2022-07-21 17:14 | Diagnostic Imaging Report ---
INDICATION: Fall and pain. TIME OF EXAM: 05:09 p.m. FINDINGS: Sacrococcygeal alignment is normal. No definite fractures are seen but bowel gas does obscure large portion of the sacrum and coccyx. SI joints are non widened. Symphysis is non widened. IMPRESSION: No acute abnormality is detected. Dictated by: Dictated on workstation # [id number]
--- NOTE | 2022-07-21 18:00 | Diagnostic Imaging Report ---
PROCEDURE: CT lumbar spine without contrast. TECHNIQUE: Multiple contiguous axial images were obtained through the lumbar spine without the use of intravenous contrast. Sagittal and coronal reformations were then performed. Auto Exposure Controls were utilized during the CT exam to meet ALARA standards for radiation dose reduction. INDICATION: Low back pain, fall down stairs. FINDINGS: Curvature and alignment of the lumbar spine is normal. Vertebral body heights and disc spaces are well maintained. No fracture is seen. Paraspinous tissues are unremarkable. IMPRESSION: No acute bony abnormality is detected. Dictated by: Dictated on workstation # [id number]
[2022-07-21] MEDS ORDERED: CYCL10TA25 PO (18:25)
[2022-07-21 18:35] VITALS: BP 122/76
== END 2022-07-21 18:35 | disposition home or self-care (01) ==
LOC: EDUNIT# 15:39 → ER 15:40
DX: M54.6 Pain in thoracic spine (principal); M54.50 Low back pain, unspecified; M53.3 Sacrococcygeal disorders, not elsewhere classified; R20.2 Paresthesia of skin; F17.210 Nicotine dependence, cigarettes, uncomplicated; Z28.310 Unvaccinated for COVID-19; Y04.8XXA Assault by other bodily force, initial encounter
CPT/HCPCS: 72070; 72100; 72131; 72220